=== PATIENT | female | born 1995 | race Caucasian/White ===

== ENCOUNTER 2023-01-27 01:11 | Emergency (ER) | payer OTHER ==
[~2023-01-27] VITALS: Ht 167.6 cm; Wt 5.0 kg
[2023-01-27 01:27] VITALS: BP 109/77; PULSE 82; RESP 18; TEMP 98.6; O2SAT 100
== END 2023-01-27 02:26 | disposition home or self-care (01) ==
LOC: ER 01:39
DX: F41.9 Anxiety disorder, unspecified (principal); E11.9 Type 2 diabetes mellitus without complications
CPT/HCPCS: 82962; 99283